=== PATIENT | male | born 1950 | race Caucasian/White ===

== ENCOUNTER 2021-09-22 19:50 | Emergency (ER) | payer MEDICARE, OTHER ==
[2021-09-22] MEDS ORDERED: Boostrix 0.5 ML (Tdap) VIAL ONE (22:23)
[2021-09-22] MEDS ORDERED: Lidocaine 1% 20 ML MDV ONE (22:23)
[2021-09-23] MEDS ORDERED: Bacitracin 1 PK ONE (00:03)
== END 2021-09-23 00:10 | disposition home or self-care (01) ==
LOC: MADERS 19:50
DX: S61.011A Laceration without foreign body of right thumb without damage to nail, initial encounter (principal); I25.2 Old myocardial infarction; N18.9 Chronic kidney disease, unspecified; Z23 Encounter for immunization; Z79.82 Long term (current) use of aspirin; Z79.899 Other long term (current) drug therapy; W23.0XXA Caught, crushed, jammed, or pinched between moving objects, initial encounter
CPT/HCPCS: 12001; 90471; 90715

== ENCOUNTER 2022-04-18 18:39 | Emergency (ER) | payer MEDICARE, OTHER ==
[2022-04-18] MEDS ORDERED: Lidocaine 1% (PF) 30 ML VIAL ONE ×2 (20:30→21:21)
[2022-04-18] MEDS ORDERED: Bacitracin 1 PK ONE (21:21)
== END 2022-04-18 21:33 | disposition home or self-care (01) ==
LOC: MADERS 18:39
DX: S91.114A Laceration without foreign body of right lesser toe(s) without damage to nail, initial encounter (principal); I25.2 Old myocardial infarction; Z79.899 Other long term (current) drug therapy; Z79.82 Long term (current) use of aspirin; W26.0XXA Contact with knife, initial encounter
CPT/HCPCS: 12001; J2001